=== PATIENT | female | born 1975 | race American Indian/Alaskan Native ===

== ENCOUNTER 2017-12-24 14:19 | Emergency (ER) | payer OTHER ==
[2017-12-24 15:02] LABS: Basophils % (Auto) 0.3 % (0.0-1.8); Eosinophils # (Auto) 0.1 K/mm3 (0.0-0.4); Eosinophils % (Auto) 1.5 % (0.0-4.3); Hematocrit 27.9 % (30.3-42.9); Hemoglobin 8.5 gm/dl (10.1-14.3); Lymphocytes # (Auto) 3.1 K/mm3 (1.2-5.4); Lymphocytes % (Auto) 42.3 % (13.4-35.0); Mean Corpuscular HGB Conc 31 % (30-34); Monocytes # (Auto) 0.5 K/mm3 (0.0-0.8); Monocytes % (Auto) 7.5 % (0.0-7.3); Platelet Count 413 K/mm3 (140-440); Red Blood Count 4.24 M/mm3 (3.65-5.03); Red Cell Distribution Width 19.9 % (13.2-15.2)
[2017-12-24 15:06] LABS: Mean Corpuscular Hemoglobin 20 pg (28-32); Mean Corpuscular Volume 66 fl (79-97)
[2017-12-25 04:21] LABS: BUN/Creatinine Ratio 20; Blood Urea Nitrogen 10 mg/dL (7-17); Calcium 8.3 mg/dL (8.4-10.2); Hemolysis Index 2
--- NOTE | 2017-12-25 04:25 | XRay Report ---
FINAL REPORT EXAM: XR CHEST ROUTINE 2V HISTORY: sob TECHNIQUE: PA and lateral views of the chest were submitted. FINDINGS: The lungs are clear. The heart size is normal. The lungs are not congested. Pleural fluid is not seen. The skeletal structures are well-maintained. IMPRESSION: Normal chest.
[2017-12-25 05:40] VITALS: BP 140/87
--- NOTE | 2017-12-25 05:44 | Cat Scan Report ---
FINAL REPORT EXAM: CT ANGIO CHEST HISTORY: sob, anemia, elevated ddimer TECHNIQUE: A CT angiogram was performed following the intravenous injection of 100 cc of Omnipaque 350. Rotational, sagittal, and coronal reconstructions were reviewed. FINDINGS: There is no evidence of pulmonary embolus or aortic dissection. The thoracic aorta is normal in caliber. The heart size is normal. Pericardial fluid is not seen. There is no evidence of congestion or adenopathy. The lungs are clear. Pleural fluid is not seen. In the upper abdomen the adrenal glands appear normal. The skeletal structures appear well maintained. At the thoracic inlet the thyroid gland appears normal. IMPRESSION: No evidence of pulmonary embolus or aortic dissection No acute process in the chest
--- NOTE | 2017-12-25 05:49 | Emergency Department Report ---
- General Chief complaint: Weakness Stated complaint: PAIN ALL OVER Time Seen by Provider: 12/25/17 01:04 Source: patient Mode of arrival: Ambulatory Limitations: No Limitations - History of Present Illness Initial comments: 42-year-old female with a past medical history of multiple sclerosis and anemia presents to Hospital complaining of weakness, fatigue, easy bruising to her legs , and shortness of breath to exertion. Symptoms progressively worsening for the past one month. 2 days ago she was seen by an urgent care center last started on iron tablets 325 mg. She reports her hemoglobin was 7 at that time. Patient complains of intermittent chest discomfort with shortness of breath episode but denies pleuritic chest pain, Tenderness, edema, recent travel, control use, or history of PE/DVT. Patient complains of muscular and joint pain secondary to MS. She was recently placed in a muscle relaxant but apparently is not helping his in process of being scheduled to see a neurologist - Related Data Previous Rx's Medication Instructions Recorded Last Taken Type HYDROcodone/APAP 5-325 [Eros 1 each PO Q6HR PRN #15 tablet 12/25/17 Unknown Rx 5/325] Allergies Allergy/AdvReac Type Severity Reaction Status Date / Time No Known Allergies Allergy Unverified 12/24/17 14:35 ED Review of Systems ROS: Stated complaint: PAIN ALL OVER Other details as noted in HPI Comment: All other systems reviewed and negative ED Past Medical Hx - Past Medical History Additional medical history: Hx of MS - Surgical History Past Surgical History?: No - Social History Smoking Status: Never Smoker Substance Use Type: None - Medications Home Medications: Home Medications Medication Instructions Recorded Confirmed Last Taken Type HYDROcodone/APAP 5-325 [Eros 1 each PO Q6HR PRN #15 tablet 12/25/17 Unknown Rx 5/325] ED Physical Exam - General Limitations: No Limitations - Other Other exam information: General: No limitations, patient is alert in no acute distress Head exam: Atraumatic, normocephalic Eyes exam: Normal appearance ENT: Moist mucous membrane, normal oropharynx Neck exam: Normal inspection, full range of motion, no meningismus nontender Respiratory exam: Clear to auscultation bilateral, no wheezes, rales, crackles Cardiovascular: Normal rate and rhythm, normal heart sounds Abdomen: Soft, nondistended, and nontender, with normal bowel sounds, no rebound, or guarding Extremity: Full range of motion normal inspection no deformity, no calf tenderness or edema, varicose veins noted, some mild ecchymosis to lower legs noted Back: Normal Inspection, full range of motion, no tenderness Neurologic: Alert, oriented x3, cranial nerves intact, no motor or sensory deficit Psychiatric: normal affect, normal mood Skin: Warm, dry, intact ED Course Vital Signs 12/24/17 12/25/17 12/25/17 14:30 01:43 01:50 Temperature 98 F 98.1 F Pulse Rate 99 H 79 Respiratory 18 16 Rate Blood Pressure 153/99 Blood Pressure 144/85 [Left] O2 Sat by Pulse 97 100 100 Oximetry 12/25/17 12/25/17 12/25/17 02:04 03:00 04:18 Temperature Pulse Rate Respiratory Rate Blood Pressure 153/90 129/78 151/85 Blood Pressure [Left] O2 Sat by Pulse 100 100 100 Oximetry 12/25/17 05:00 Temperature Pulse Rate Respiratory Rate Blood Pressure 140/87 Blood Pressure [Left] O2 Sat by Pulse 100 Oximetry ED Medical Decision Making - Lab Data Result diagrams: 12/24/17 14:49 12/25/17 03:35 Lab Results 12/24/17 12/24/17 12/24/17 Range/Units 14:49 14:49 14:49 WBC 7.3 (4.5-11.0) K/mm3 RBC 4.24 (3.65-5.03) M/mm3 Hgb 8.5 L (10.1-14.3) gm/dl Hct 27.9 L (30.3-42.9) % MCV 66 L (79-97) fl MCH 20 L (28-32) pg MCHC 31 (30-34) % RDW 19.9 H (13.2-15.2) % Plt Count 413 (140-440) K/mm3 Lymph % (Auto) 42.3 H (13.4-35.0) % [place] % (Auto) 7.5 H (0.0-7.3) % Eos % (Auto) 1.5 (0.0-4.3) % Baso % (Auto) 0.3 (0.0-1.8) % Lymph # 3.1 (1.2-5.4) K/mm3 [place] # 0.5 (0.0-0.8) K/mm3 Eos # 0.1 (0.0-0.4) K/mm3 Baso # 0.0 (0.0-0.1) K/mm3 Seg Neutrophils % 48.4 (40.0-70.0) % Seg Neutrophils # 3.5 (1.8-7.7) K/mm3 D-Dimer (0-234) ng/mlDDU Sodium (137-145) mmol/L Potassium (3.6-5.0) mmol/L Chloride (98-107) mmol/L Carbon Dioxide (22-30) mmol/L Anion Gap mmol/L BUN (7-17) mg/dL Creatinine (0.7-1.2) mg/dL Estimated GFR ml/min BUN/Creatinine Ratio % Glucose (65-100) mg/dL Calcium (8.4-10.2) mg/dL Troponin T (0.00-0.029) ng/mL HCG, Qual Negative (Negative) Blood Type O POSITIVE Antibody Screen Negative 12/25/17 12/25/17 12/25/17 Range/Units 03:35 04:02 04:30 WBC (4.5-11.0) K/mm3 RBC (3.65-5.03) M/mm3 Hgb (10.1-14.3) gm/dl Hct (30.3-42.9) % MCV (79-97) fl MCH (28-32) pg MCHC (30-34) % RDW (13.2-15.2) % Plt Count (140-440) K/mm3 Lymph % (Auto) (13.4-35.0) % [place] % (Auto) (0.0-7.3) % Eos % (Auto) (0.0-4.3) % Baso % (Auto) (0.0-1.8) % Lymph # (1.2-5.4) K/mm3 [place] # (0.0-0.8) K/mm3 Eos # (0.0-0.4) K/mm3 Baso # (0.0-0.1) K/mm3 Seg Neutrophils % (40.0-70.0) % Seg Neutrophils # (1.8-7.7) K/mm3 D-Dimer 285.28 H (0-234) ng/mlDDU Sodium 136 L (137-145) mmol/L Potassium 3.4 L (3.6-5.0) mmol/L Chloride 102.0 (98-107) mmol/L Carbon Dioxide 23 (22-30) mmol/L Anion Gap 14 mmol/L BUN 10 (7-17) mg/dL Creatinine 0.5 L (0.7-1.2) mg/dL Estimated GFR > 60 ml/min BUN/Creatinine Ratio 20 % Glucose 106 H (65-100) mg/dL Calcium 8.3 L (8.4-10.2) mg/dL Troponin T < 0.010 (0.00-0.029) ng/mL HCG, Qual (Negative) Blood Type Antibody Screen - EKG Data -: EKG Interpreted by Me EKG shows normal: sinus rhythm, axis (qrs 71), QRS complexes (qrsd 103), ST-T waves (no stemi/ t inv) Rate: normal (73) - Radiology Data Radiology results: report reviewed cxr FINDINGS: The lungs are clear. The heart size is normal. The lungs are not congested. Pleural fluid is not seen. The skeletal structures are well-maintained. IMPRESSION: Normal chest. cta chest IMPRESSION: No evidence of pulmonary embolus or aortic dissection No acute process in the chest - Medical Decision Making Patient has anemia but it appears to be improved compared to previous reported value provided by patient. She does have microcytic anemia suggestive of iron deficiency. Continuation of iron tabltes will be encouraged. Patient have an overall fatigue and dyspnea with a normal EKG, neg trop, no cardiac risk factors , and a negative CT angiogram chest. Patient will be encouraged to follow up with the primary care doctor, theatre professor, and to continue her iron tablets. PO kcl given for mild hypokalemia. Pt requesting pain meds for pain secondary to ms - Differential Diagnosis PE, unstable angina, symptomatic anemia, Critical Care Time: No Critical care attestation.: If time is entered above; I have spent that time in minutes in the direct care of this critically ill patient, excluding procedure time. ED Disposition Clinical Impression: Fatigue, ACE (dyspnea on exertion), Iron deficiency anemia, Multiple sclerosis , Hypokalemia Disposition: TO HOME OR SELFCARE Is pt being admited?: No Does the pt Need Aspirin: No Condition: Stable Instructions: Iron Deficiency Anemia (ED), Fatigue (ED) Additional Instructions: Follow-up with the primary care doctor and theatre professor provided for further evaluation. Return is symptoms worsen as indicated by your discharge instructions. Continue your iron tablets. Prescriptions: HYDROcodone/APAP 5-325 [Eros 5/325] 1 each PO Q6HR PRN #15 tablet PRN Reason: Pain Referrals: AMERICA MIN MD [Staff Physician] - 3-5 Days (Primary care doctor) PURA CUEVAS MD [Staff Physician] - 3-5 Days (Hematologsit) Forms: Work/School Release Form(ED) Time of Disposition: 05:52
[2017-12-25] MEDS: K-DUR PO ONE (06:30)
== END 2017-12-25 06:55 | disposition home or self-care (01) ==
LOC: ED 14:19
DX: G35 Multiple sclerosis (principal); E87.6 Hypokalemia; D50.9 Iron deficiency anemia, unspecified; R53.83 Other fatigue; R06.00 Dyspnea, unspecified
CPT/HCPCS: 36415; 71046; 71275; 80048; 84484; 84703; 85025; 85379; 86850; 86900; 86901; 93005; 93010; 99284; Q9967